=== PATIENT | female | born 1975 | race Caucasian/White ===

== ENCOUNTER → 2016-05-11 | Outpatient (CLI) | payer OTHER ==
[~2016-05-11] MED LIST: ADDE20CA PO; CETI10TA PO; CRANCAP10 PO; CYCL5TA PO; CYMB60CA3 PO; EFFE37.527 PO; FIBEPOW PO; FLON0.054; GABA-279 PO; GABA10PO PO; HYDR200T3 PO; HYDROXYCHLOROQUINE PO; LIDO4CRE2 TOP; LINZ290C PO; LYRI75CA PO; MELO7.5S PO; MIRA3350 PO; MOBI15TA PO; MULT1TAB10 PO; NEUR100C PO; OMEP40CA2 PO; PRAM0.252 PO; TOPA50TA7 PO; TRAZ50TA4 PO; YAZ3TAB PO; ZOLMITRIPTAN PO; ZOMI5SPR; ZONI100C2 PO; botox INJ; mirilax PO
[2016-05-11 17:08] LABS: ALBUMIN 3.6 GM/DL (3.2-5.2); ALBUMIN/GLOBULIN RATIO 0.88 (1.00-1.93); ALKALINE PHOSPHATASE 125 U/L (45-117); ALT/SGPT 23 U/L (12-78); ANION GAP 11 MEQ/L (8-16); AST/SGOT 11 U/L (15-37); BILIRUBIN,TOTAL 0.3 MG/DL (0.2-1.0); BLOOD UREA NITROGEN 9 MG/DL (7-18); CALCIUM LEVEL 9.6 MG/DL (8.5-10.1); CARBON DIOXIDE LEVEL 26 MEQ/L (21-32); CHLORIDE LEVEL 103 MEQ/L (98-107); COMPLEMENT C3 177 MG/DL (90-180); COMPLEMENT C4 28.8 MG/DL (10-40); CREATININE FOR GFR 0.76 MG/DL (0.55-1.02); GLOMERULAR FILTRATION RATE > 60.0 (>58); GLUCOSE, FASTING 79 MG/DL (70-105); POTASSIUM SERUM 3.9 MEQ/L (3.5-5.1); SODIUM LEVEL 140 MEQ/L (136-145); TOTAL PROTEIN 7.7 GM/DL (6.4-8.2)
[2016-05-11 19:07] LABS: BASO % 0.5 % (0.0-1.0); EOS # 0.1 K/mm3 (0.0-0.50); EOS % 0.8 % (0.0-3.0); LARGE UNSTAINED CELL # 0.1 K/mm3 (0.0-0.4); LARGE UNSTAINED CELL % 1.2 % (0.0-4.0); LYMPH # 2.5 K/mm3 (1.5-4.5); LYMPH % 27.7 % (24.0-44.0); MEAN CORPUSCULAR HEMOGLOBIN 27.4 pg (27.0-33.0); MEAN CORPUSCULAR HGB CONC 32.7 g/dl (32.0-36.5); MEAN CORPUSCULAR VOLUME 83.8 fl (80.0-96.0); MONO # 0.3 K/mm3 (0.0-0.8); MONO % 3.7 % (0.0-5.0); NEUTROPHILS # 5.6 K/mm3 (1.8-7.7); NEUTROPHILS % 65.9 % (36.0-66.0); PLATELET COUNT, AUTOMATED 390 k/mm3 (150-450); RED CELL DISTRIBUTION WIDTH 12.6 % (11.5-14.5); WHITE BLOOD COUNT 8.5 K/mm3 (4.0-10.0)
[2016-05-11 20:46] LABS: ERYTHROCYTE SEDIMENTATION RATE 15 mm/hr (0-20)
--- NOTE | 2016-05-12 01:44 | REP ---
Clinical: Lumbar pain. Technique: AP, angled, bilateral oblique views of the sacroiliac joints. Findings: Sacroiliac joints are symmetric and normal. Osseous structures are intact and unremarkable. Visualized soft tissues are within normal limits. Phleboliths noted in the pelvis. Impression: Normal sacroiliac joint series. Signed by Low Harding MD 05/12/2016 01:36 A
--- NOTE | 2016-05-12 01:48 | REP ---
Clinical: Acute on chronic chest pain . Comparison: None . Technique: PA and lateral. Findings: The mediastinum and cardiac silhouette are normal. The lung gunter are clear and without acute consolidation, effusion, or pneumothorax. The skeletal structures are intact and normal. Impression: 1. No acute cardiopulmonary process. Signed by Low Harding MD 05/12/2016 01:39 A
--- NOTE | 2016-05-12 01:50 | REP ---
Clinical: Lumbar and lower back pain . Technique: AP, lateral, bilateral oblique, and coned-down views. Findings: Alignment and lordosis is maintained. The vertebral bodies including transverse process and spinous processes are intact and normal for age . There is no evidence for acute fracture / compression injury or subluxation. No evidence for spondylolysis or spondylolisthesis. No significant degenerative change is noted. Impression: Normal, age-appropriate lumbosacral spine radiograph series. Signed by Low Harding MD 05/12/2016 01:41 A
== END ==
LOC: M LRY 11:34
PROVIDERS: ATTEND Internal Medicine Rheumatology
DX: M35.9 Systemic involvement of connective tissue, unspecified (principal); Z79.899 Other long term (current) drug therapy; R53.82 Chronic fatigue, unspecified; M54.5 Low back pain

== ENCOUNTER → 2016-07-08 | Outpatient (CLI) | payer OTHER ==
[2016-07-08 09:07] LABS: C4-DICARBOXYLIC N
[2016-07-10 09:51] LABS: CORTISOL AM 33.8 UG/DL (4.3-22.4)
[2016-07-12 00:07] LABS: GLUTATHIONE QT 241 ug/mL (176-323)
== END ==
LOC: M LAB 08:37
PROVIDERS: ATTEND Nurse Practitioner Pediatrics
DX: F32.2 Major depressive disorder, single episode, severe without psychotic features (principal)